=== PATIENT | male | born 2000 | race Caucasian/White ===

== ENCOUNTER 2018-08-27 13:04 | Emergency (ER) | payer SELFPAY ==
[~2018-08-27] VITALS: Ht 185.4 cm; Wt 163.6 kg
[2018-08-27 13:11] VITALS: Ht 185.4 cm; Wt 163.6 kg
[2018-08-27 13:39] LABS: BASOPHILS 0.2 % (0-2); EOSINOPHILS 3.2 % (0-7); HEMATOCRIT 49.5 % (42.0-54.0); HEMOGLOBIN 17.5 g/dL (13.5-17.5); IMMATURE GRANULOCYTES 0.2 % (0-5); MCH 31.3 pg (26.0-34.0); MCHC 35.4 g/dL (31.0-37.0); MCV 88.6 fL (80.0-100.0); MEAN PLATELET VOLUME 10.2 fL (7.4-10.4); MONOCYTES 7.5 % (2-11); NEUTROPHILS 63.9 % (40-80); PLATELET COUNT 222 10x3/uL (130-400); RBC 5.59 10x6/uL (4.20-6.10); RDW 12.7 % (11.5-14.5); WBC 9.3 10x3/uL (4.8-10.8)
[2018-08-27 13:42] LABS: APPEARANCE CLEAR (CLEAR); BILIRUBIN 1+ (NEGATIVE); COLOR YELLOW (YELLOW); GLUCOSE NEGATIVE (NEGATIVE); KETONE NEGATIVE (NEGATIVE); NITRITE NEGATIVE (NEGATIVE); PROTEIN NEGATIVE (NEGATIVE); SPECIFIC GRAVITY 1.015 (1.005-1.020); UROBILINOGEN NORMAL (NORMAL)
[2018-08-27 13:52] LABS: ALBUMIN 3.9 g/dL (3.4-5.0); ALKALINE PHOSPHATASE 67 U/L (46-116); ALT (SGPT) 105 U/L (10-68); AMYLASE - SERUM 34 U/L (25-115); BILIRUBIN - TOTAL 0.88 mg/dL (0.2-1.3); CALC OSMOLALITY 280 mosm/kg (275-300); CALCIUM 8.6 mg/dL (8.5-10.1); CARBON DIOXIDE 26.9 mmol/L (21.0-32.0); CHLORIDE - SERUM 103 mmol/L (98-107); CREATININE - SERUM 0.8 mg/dL (0.6-1.3); GLUCOSE 98 mg/dL (74-106); LIPASE 108 U/L (73-393); POTASSIUM - SERUM 3.9 mmol/L (3.5-5.1); PROTEIN - SERUM 7.5 g/dL (6.4-8.2); SODIUM 141 mmol/L (136-145); UREA NITROGEN 12 mg/dL (7-18); eGFR NON AFRICAN AMERICAN > 90 mL/min (90-120)
[2018-08-27] MEDS ORDERED: TORADOL10 MG PO (18:08)
[2018-08-27 18:26] VITALS: BP 122/72
== END 2018-08-27 18:29 | disposition home or self-care (01) ==
LOC: D.ER 13:04
PROVIDERS: Emergency Medicine
DX: R16.2 Hepatomegaly with splenomegaly, not elsewhere classified (principal); F17.200 Nicotine dependence, unspecified, uncomplicated

== ENCOUNTER 2019-02-14 19:13 | Emergency (ER) | payer SELFPAY ==
[~2019-02-14] VITALS: Ht 185.4 cm; Wt 169.1 kg
[~2019-02-14 19:13] MED LIST: TORADOL10 MG PO
[2019-02-14 19:34] VITALS: BP 117/68; Ht 185.4 cm; Wt 169.1 kg
== END 2019-02-14 22:47 | disposition left against medical advice (07) ==
LOC: D.ER 19:13
DX: H92.01 Otalgia, right ear (principal)

== ENCOUNTER 2019-05-03 12:21 | Emergency (ER) | payer MEDICAID ==
[~2019-05-03] VITALS: Ht 185.4 cm; Wt 169.5 kg
[2019-05-03 13:00] VITALS: BP 153/98; Ht 185.4 cm; Wt 169.5 kg
[2019-05-03 13:40] LABS: BASOPHILS 0.2 % (0-2); HEMATOCRIT 47.7 % (42.0-54.0); HEMOGLOBIN 16.6 g/dL (13.5-17.5); IMMATURE GRANULOCYTES 0.2 % (0-5); LYMPHOCYTES 29.9 % (15-50); MCH 31.4 pg (26.0-34.0); MCHC 34.8 g/dL (31.0-37.0); MCV 90.3 fL (80.0-100.0); MEAN PLATELET VOLUME 10.1 fL (7.4-10.4); MONOCYTES 5.6 % (2-11); NEUTROPHILS 60.1 % (40-80); PLATELET COUNT 209 10x3/uL (130-400); RBC 5.28 10x6/uL (4.20-6.10); RDW 12.9 % (11.5-14.5); WBC 9.9 10x3/uL (4.8-10.8)
[2019-05-03 14:43] LABS: CALC OSMOLALITY 283 mosm/kg (275-300); CHLORIDE - SERUM 106 mmol/L (98-107); CREATININE - SERUM 0.7 mg/dL (0.6-1.3); POTASSIUM - SERUM 4.3 mmol/L (3.5-5.1); SODIUM 141 mmol/L (136-145); UREA NITROGEN 10 mg/dL (7-18); eGFR NON AFRICAN AMERICAN > 90 mL/min (90-120)
[2019-05-03 14:44] LABS: ALBUMIN 3.7 g/dL (3.4-5.0); ALKALINE PHOSPHATASE 71 U/L (46-116); ALT (SGPT) 72 U/L (10-68); BILIRUBIN - TOTAL 0.48 mg/dL (0.2-1.3); CALCIUM 8.7 mg/dL (8.5-10.1); GLUCOSE 178 mg/dL (74-106); PROTEIN - SERUM 7.1 g/dL (6.4-8.2)
[2019-05-03] MEDS ORDERED: MEDROL DOSE PACK4 MG PO (16:15)
[2019-05-03] MEDS ORDERED: CLARITIN 10 MG10 MG PO (16:15)
[2019-05-06 18:08] LABS: AFB SPECIMEN PROCESSING Concentration (())
[2019-06-27 12:09] LABS: ACID FAST CULTURE Negative (()); ACID FAST SMEAR Negative (())
== END 2019-05-03 16:33 | disposition home or self-care (01) ==
LOC: D.ER 12:21
PROVIDERS: Family Medicine
DX: Z20.828 Contact with and (suspected) exposure to other viral communicable diseases (principal)

== ENCOUNTER 2019-08-14 09:56 | Emergency (ER) | payer OTHER ==
[~2019-08-14] VITALS: Ht 185.4 cm; Wt 165.9 kg
[~2019-08-14 09:56] MED LIST changes: +CLARITIN 10 MG10 MG PO; +MEDROL DOSE PACK4 MG PO
[2019-08-14 10:01] VITALS: BP 127/78; Ht 185.4 cm; Wt 165.9 kg
[2019-08-14 10:31] LABS: CALC OSMOLALITY 283 mosm/kg (275-300); CALCIUM 8.8 mg/dL (8.5-10.1); CARBON DIOXIDE 29.7 mmol/L (21.0-32.0); CHLORIDE - SERUM 103 mmol/L (98-107); CREATININE - SERUM 0.9 mg/dL (0.6-1.3); GLUCOSE 170 mg/dL (74-106); POTASSIUM - SERUM 3.9 mmol/L (3.5-5.1); SODIUM 141 mmol/L (136-145); UREA NITROGEN 11 mg/dL (7-18); eGFR NON AFRICAN AMERICAN > 90 mL/min (90-120)
[2019-08-14 10:36] LABS: BASOPHILS 0.2 % (0-2); EOSINOPHILS 2.5 % (0-7); HEMATOCRIT 50.7 % (42.0-54.0); IMMATURE GRANULOCYTES 0.3 % (0-5); LYMPHOCYTES 28.6 % (15-50); MCHC 35.5 g/dL (31.0-37.0); MCV 90.1 fL (80.0-100.0); MEAN PLATELET VOLUME 9.9 fL (7.4-10.4); NEUTROPHILS 63.4 % (40-80); PLATELET COUNT 279 10x3/uL (130-400); RBC 5.63 10x6/uL (4.20-6.10); RDW 12.6 % (11.5-14.5); WBC 10.8 10x3/uL (4.8-10.8)
[2019-08-14 10:37] LABS: ALBUMIN 3.9 g/dL (3.4-5.0); ALKALINE PHOSPHATASE 69 U/L (46-116); ALT (SGPT) 64 U/L (10-68); BILIRUBIN - TOTAL 0.73 mg/dL (0.2-1.3); MAGNESIUM - SERUM 1.9 mg/dL (1.8-2.4); PROTEIN - SERUM 7.6 g/dL (6.4-8.2)
--- NOTE | 2019-08-14 12:18 | NUR ---
PT HAS A HX OF SUICIDE ATTEMPT FROM OCTOBER OF 2017. PT HAS HAD PSYCH PLACEMENT BUT RECENTLY GOT OFF OF HIS MEDICATIONS AND HAS BEEN DEALING WITH A LOT OF STRESS IN HIS LIFE. PT RATES AT A HIGH RISK AND A SITTER WAS ORDERED. SAFETY PLAN INITIATED AND RESOURCES GIVEN. PT VERBALIZED UNDERSTANDING AND IS AGREEABLE TO PSYCH PLACEMENT. DR. RODRIGUEZ ORDERED SITTER. ATTENDING NOTIFIED OF ASSESSMENT RESULTS.
[2019-08-14 13:46] LABS: UDS - AMPHET NEGATIVE QUAL (NEGATIVE); UDS - BARB NEGATIVE QUAL (NEGATIVE); UDS - BENZO NEGATIVE QUAL (NEGATIVE); UDS - COCAINE NEGATIVE QUAL (NEGATIVE); UDS - OPIATE NEGATIVE QUAL (NEGATIVE); UDS - PCP NEGATIVE QUAL (NEGATIVE); UDS - THC POSITIVE QUAL (NEGATIVE)
[2019-08-14 13:53] LABS: APPEARANCE CLEAR (CLEAR); BILIRUBIN NEGATIVE (NEGATIVE); COLOR YELLOW (YELLOW); GLUCOSE NEGATIVE (NEGATIVE); KETONE NEGATIVE (NEGATIVE); NITRITE NEGATIVE (NEGATIVE); PROTEIN NEGATIVE (NEGATIVE); UROBILINOGEN NORMAL (NORMAL)
== END 2019-08-14 17:57 ==
LOC: D.ER 09:56
PROVIDERS: Emergency Medicine
DX: R45.851 Suicidal ideations (principal); F32.9 Major depressive disorder, single episode, unspecified

== ENCOUNTER 2020-01-05 20:42 | Emergency (ER) | payer OTHER ==
[~2020-01-05] VITALS: Ht 185.4 cm; Wt 162.3 kg
[2020-01-05 21:09] VITALS: Ht 185.4 cm; Wt 162.3 kg
[2020-01-05] MEDS ORDERED: PROZAC40 MG PO (21:11)
[2020-01-05] MEDS ORDERED: ADIPEX-P37.5 M1 PO (21:11)
[2020-01-05 21:25] LABS: BILIRUBIN NEGATIVE (NEGATIVE); GLUCOSE NEGATIVE (NEGATIVE); KETONE NEGATIVE (NEGATIVE); NITRITE NEGATIVE (NEGATIVE); UROBILINOGEN NORMAL (NORMAL)
[2020-01-05 21:30] LABS: BASOPHILS 0.3 % (0-2); EOSINOPHILS 2.1 % (0-7); HEMATOCRIT 51.2 % (42.0-54.0); HEMOGLOBIN 17.5 g/dL (13.5-17.5); IMMATURE GRANULOCYTES 0.2 % (0-5); LYMPHOCYTES 22.5 % (15-50); MCH 30.6 pg (26.0-34.0); MCHC 34.2 g/dL (31.0-37.0); MCV 89.5 fL (80.0-100.0); MONOCYTES 6.6 % (2-11); NEUTROPHILS 68.3 % (40-80); PLATELET COUNT 230 10x3/uL (130-400); RBC 5.72 10x6/uL (4.20-6.10); RDW 12.7 % (11.5-14.5)
[2020-01-05 21:34] LABS: UDS - AMPHET NEGATIVE QUAL (NEGATIVE); UDS - BARB NEGATIVE QUAL (NEGATIVE); UDS - BENZO NEGATIVE QUAL (NEGATIVE); UDS - COCAINE NEGATIVE QUAL (NEGATIVE); UDS - OPIATE NEGATIVE QUAL (NEGATIVE); UDS - PCP NEGATIVE QUAL (NEGATIVE); UDS - THC POSITIVE QUAL (NEGATIVE)
[2020-01-05 21:46] LABS: CALC OSMOLALITY 282 mosm/kg (275-300); CALCIUM 9.1 mg/dL (8.5-10.1); CARBON DIOXIDE 31.1 mmol/L (21.0-32.0); CHLORIDE - SERUM 104 mmol/L (98-107); CREATININE - SERUM 1.2 mg/dL (0.6-1.3); GLUCOSE 155 mg/dL (74-106); POTASSIUM - SERUM 4.1 mmol/L (3.5-5.1); SODIUM 141 mmol/L (136-145); UREA NITROGEN 10 mg/dL (7-18); eGFR NON AFRICAN AMERICAN 81 mL/min (90-120)
[2020-01-05 21:52] LABS: ALBUMIN 4.1 g/dL (3.4-5.0); ALKALINE PHOSPHATASE 75 U/L (30-120); ALT (SGPT) 112 U/L (10-68); BILIRUBIN - TOTAL 0.72 mg/dL (0.2-1.3); MAGNESIUM - SERUM 1.9 mg/dL (1.8-2.4); PROTEIN - SERUM 7.7 g/dL (6.4-8.2)
--- NOTE | 2020-01-05 22:21 | NUR ---
DR. RODRIGUEZ NOTIFIED AND REVIEWED PT'S BEHAVIOR AND ASSESSMENT RESULTS. PT A LOW RISK PER DR. RODRIGUEZ. DR. RODRIGUEZ STATED TO GIVE RESOURCES TO PT AT TIME OF DISCHARGE. NO FURTHER ORDERS AT THIS TIME. RESOURCES REVIEWED WITH PT AND HE VERBALIZED UNDERSTANDING.
[2020-01-05 23:03] VITALS: BP 142/87
== END 2020-01-05 23:03 | disposition home or self-care (01) ==
LOC: D.ER 20:42
PROVIDERS: Family Medicine
DX: S09.90XA Unspecified injury of head, initial encounter (principal); W22.8XXA Striking against or struck by other objects, initial encounter; Y93.9 Activity, unspecified; Y92.9 Unspecified place or not applicable

== ENCOUNTER 2020-03-08 22:46 | Emergency (ER) | payer OTHER ==
[~2020-03-08] VITALS: Ht 185.4 cm; Wt 169.1 kg
[~2020-03-08 22:46] MED LIST changes: +ADIPEX-P37.5 M1 PO; +PROZAC40 MG PO
[2020-03-08 23:04] VITALS: BP 128/78; Ht 185.4 cm; Wt 169.1 kg
[2020-03-08] MEDS ORDERED: ULTRAM50 MG PO (23:31)
== END 2020-03-08 23:54 | disposition home or self-care (01) ==
LOC: D.ER 22:46
DX: K42.9 Umbilical hernia without obstruction or gangrene (principal); R10.9 Unspecified abdominal pain

== ENCOUNTER → 2020-03-25 15:24 | Outpatient (CLI) | payer OTHER ==
[2020-03-08 23:04] VITALS: BMI 49.1
[~2020-03-25 15:24] MED LIST changes: +ULTRAM50 MG PO
[2020-03-25 15:47] LABS: BASOPHILS 0.2 % (0-2); EOSINOPHILS 3.3 % (0-7); HEMATOCRIT 49.6 % (42.0-54.0); HEMOGLOBIN 17.3 g/dL (13.5-17.5); IMMATURE GRANULOCYTES 0.2 % (0-5); LYMPHOCYTES 29.2 % (15-50); MCH 31.3 pg (26.0-34.0); MCHC 34.9 g/dL (31.0-37.0); MCV 89.9 fL (80.0-100.0); MEAN PLATELET VOLUME 10.4 fL (7.4-10.4); MONOCYTES 5.4 % (2-11); NEUTROPHILS 61.7 % (40-80); PLATELET COUNT 212 10x3/uL (130-400); RBC 5.52 10x6/uL (4.20-6.10); RDW 12.7 % (11.5-14.5); WBC 10.2 10x3/uL (4.8-10.8)
[2020-03-25 16:21] LABS: ALBUMIN 3.7 g/dL (3.4-5.0); ALKALINE PHOSPHATASE 75 U/L (30-120); ALT (SGPT) 87 U/L (10-68); AMYLASE - SERUM 37 U/L (25-115); BILIRUBIN - TOTAL 0.45 mg/dL (0.2-1.3); CALC OSMOLALITY 282 mosm/kg (275-300); CALCIUM 8.6 mg/dL (8.5-10.1); CARBON DIOXIDE 25.5 mmol/L (21.0-32.0); CHLORIDE - SERUM 104 mmol/L (98-107); CREATININE - SERUM 0.9 mg/dL (0.6-1.3); GLUCOSE 155 mg/dL (74-106); POTASSIUM - SERUM 4.1 mmol/L (3.5-5.1); PROTEIN - SERUM 7.2 g/dL (6.4-8.2); SODIUM 141 mmol/L (136-145); UREA NITROGEN 10 mg/dL (7-18); eGFR NON AFRICAN AMERICAN > 90 mL/min (90-120)
== END | disposition home or self-care (01) ==
LOC: D.LAB 15:24
PROVIDERS: ATTEND Nurse Practitioner
DX: R10.11 Right upper quadrant pain (principal)

== ENCOUNTER → 2020-03-26 09:07 | Outpatient (CLI) | payer OTHER ==
[2020-03-08 23:04] VITALS: BMI 49.1
== END | disposition home or self-care (01) ==
LOC: D.US 09:00
PROVIDERS: ATTEND Nurse Practitioner
DX: R10.11 Right upper quadrant pain (principal)

== ENCOUNTER → 2020-04-07 09:01 | Outpatient (CLI) | payer OTHER ==
[2020-03-08 23:04] VITALS: BMI 49.1
== END | disposition home or self-care (01) ==
LOC: D.NM 09:01
PROVIDERS: ATTEND Surgery
DX: K82.8 Other specified diseases of gallbladder (principal)

== ENCOUNTER 2020-04-21 06:36 | Day surgery (SDC) | payer OTHER ==
[~2020-04-21] VITALS: Ht 185.4 cm; Wt 168.7 kg
[2020-04-21 08:52] VITALS: BP 124/81; Ht 185.4 cm; Wt 168.7 kg
[2020-04-21 09:07] LABS: BASOPHILS 0.2 % (0-2); EOSINOPHILS 3.4 % (0-7); HEMATOCRIT 47.1 % (42.0-54.0); HEMOGLOBIN 16.4 g/dL (13.5-17.5); IMMATURE GRANULOCYTES 0.3 % (0-5); LYMPHOCYTES 30.3 % (15-50); MCH 31.2 pg (26.0-34.0); MCHC 34.8 g/dL (31.0-37.0); MCV 89.7 fL (80.0-100.0); MEAN PLATELET VOLUME 10.2 fL (7.4-10.4); MONOCYTES 6.1 % (2-11); NEUTROPHILS 59.7 % (40-80); PLATELET COUNT 179 10x3/uL (130-400); RBC 5.25 10x6/uL (4.20-6.10); RDW 12.6 % (11.5-14.5)
[2020-04-21 09:33] LABS: CALC OSMOLALITY 277 mosm/kg (275-300); CALCIUM 8.4 mg/dL (8.5-10.1); CARBON DIOXIDE 28.7 mmol/L (21.0-32.0); CHLORIDE - SERUM 103 mmol/L (98-107); CREATININE - SERUM 0.7 mg/dL (0.6-1.3); GLUCOSE 157 mg/dL (74-106); POTASSIUM - SERUM 4.2 mmol/L (3.5-5.1); SODIUM 138 mmol/L (136-145); UREA NITROGEN 10 mg/dL (7-18); eGFR NON AFRICAN AMERICAN > 90 mL/min (90-120)
--- NOTE | 2020-04-21 13:45 | NUR ---
UP TO BR WITHOUT ASSISTANCE, VOIDS WITHOUT DIFFICULTY. IV D/C'D WITH CANNULA INTACT, PRESSURE HELD AND DRSG PLACED. DISCHARGE INSTRUCTIONS GIVEN TO BOTH PT AND PARTNER, BOTH VERBALIZED AN UNDERSTANDING. ABD BINDER SECURELY IN PLACE AND CDI. DISCHARGED IN STABLE CONDITION AND W/O C/O
--- NOTE | 2020-04-22 18:37 | OP ---
PATIENT NAME: LETY PABON MEDICAL RECORD: [id number] :98 LOCATION:D.OPS ADMISSION DATE: SURGEON: RICK MANLEY MD DATE OF OPERATION: 04/21/2020 PREOPERATIVE DIAGNOSIS: Symptomatic ventral hernia. POSTOPERATIVE DIAGNOSES: 1. Symptomatic ventral incarcerated hernia. 2. Desaturations when the patient was placed in the Trendelenburg position. PROCEDURE: Laparoscopic with conversion to open symptomatic incarcerated ventral hernia repair with Ventralex ST mesh. SURGEON: Rick Manley MD RECYCLER FORKLIFT DRIVER TRUCK DRIVER: None. BLOOD LOSS: 25 mL. ANESTHESIA: General. COMPLICATIONS: None. The risks, possible complications, and alternatives to the procedure were explained to the patient. He elects to proceed. The discussion specifically included, but was not limited to, bleeding, requiring emergency reoperation; infection; intestinal injury as well as mesh infection. OPERATIVE COURSE: The patient was conveyed to the operating room electively on 04/21/2020. General anesthesia was induced by anesthesia staff. The abdomen was sterilely prepped and draped. A skin incision was accomplished in the left upper quadrant. Utilizing the Optiview device, I entered the peritoneal cavity bluntly. CO2 insufflation was begun. Once a sufficient pneumoperitoneum had been achieved, I identified incarcerated omentum within the patient's umbilical hernia. Another 5 mm trocar was placed in the left lower quadrant. The patient was positioned in Trendelenburg position. Due to his body habitus, he became difficult to ventilate and his sats dropped down into the 70s. Myself with the anesthesia staff both elected to convert to an open procedure due to this situation. The trocars were removed. Skin incisions were closed with interrupted intracuticular 3-0 Vicryls. Incision was accomplished within the umbilicus. Excess umbilical skin was excised. I identified incarcerated omentum. This was excised in a piecemeal fashion. Some hernia sac was excised as well. The excision was carried out with the Harmonic scalpel. I then sharply debrided some of the attenuated fascia from around the umbilical hernia defect. I did place one horizontal mattress #1 Surgidac in the fascia at the umbilical hernia defect. I then advanced a Ventralex 8 cm circular mesh down into the peritoneal cavity and then with finger dissection ensured that it was flattened OPERATIVE REPORT [id number] LETY PABON out up against the anterior abdominal wall. I then took the 2 tags and sutured into the surrounding fascia with 0 Surgidacs. I then tied the #1 Surgidac to decrease the diameter of the hernia defect. I irrigated with hydrogen peroxide. The subdermis of the umbilicus was brought together with a single 3-0 Vicryl suture. The skin at the umbilicus was closed with interrupted 3-0 Vicryl Rapide sutures. A sterile dressing was applied. The patient was then extubated and conveyed to postanesthesia care unit where he was in stable condition. NTS:[id number] Voice Confirmation ID: [id number] DOCUMENT ID: [id number] RICK MANLEY MD at 1837 CC: [id number] DICTATION DATE: 04/21/20 1136 CABLE TOOL OPERATOR: 04/21/202106 [facility] 04/21/20 [id number] [place] [address]
== END 2020-04-21 14:00 | disposition home or self-care (01) ==
LOC: D.OPS 06:36 → D.PAN 09:00 → D.OPS 09:00
PROVIDERS: ATTEND Surgery
DX: K43.6 Other and unspecified ventral hernia with obstruction, without gangrene (principal); E66.01 Morbid (severe) obesity due to excess calories; E11.9 Type 2 diabetes mellitus without complications; K82.8 Other specified diseases of gallbladder; R11.2 Nausea with vomiting, unspecified